=== PATIENT | male | born 1945 | race Caucasian/White ===

== ENCOUNTER 2016-07-22 20:44 | Observation (INO) | payer MEDICARE ==
--- NOTE | ~2016-07-22 | EGD ---
EGD REPORT [facility] [address] [address] NAME: CHRISTIANO CAMACHO : [birth year] STATUS : [facility] PAT#: [id number] AGE: 70 ADM/REG DATE : 07/22/16 MR#: [id number] REPORT SERV DATE: 07/23/16 DICTATED BY: DATE: REPORT STATUS : Draft TRANSCRIBED BY: [facility] DATE: 07/23/16 Endoscopy Center Patient Name: Christiano Camacho Date of : 1945 Attending MD: BEBETO HUBER MD Procedure Date No Time: 07/23/2016 Procedure: Upper GI endoscopy Indications: Foreign body in the esophagus Referring MD: LIBERTAD FULLER Medicines: General Anesthesia Complications: No immediate complications. Procedure: Pre-Anesthesia Assessment: - ASA Grade Assessment: III - A patient with severe systemic disease. After obtaining informed consent, the endoscope was passed under direct vision. Throughout the procedure, the patient's blood pressure, pulse, and oxygen saturations were monitored continuously. The GIF [id number] was introduced through the mouth, and advanced to the second part of duodenum. The upper GI endoscopy was accomplished without difficulty. The patient tolerated the procedure well. Findings: Food was found in the lower third of the esophagus. Removal was accomplished with a Luong net. LA Grade D (one or more mucosal breaks involving at least 75% of esophageal circumference) esophagitis with bleeding was found in the lower third of the esophagus. Biopsies were taken with a cold forceps for histology. Two non-bleeding cratered gastric ulcers were found in the prepyloric region of the stomach and at the pylorus. The largest lesion was 5 mm in largest dimension. Biopsies were taken with a cold forceps for histology. No other significant abnormalities were identified in a careful examination of the stomach. There is no endoscopic evidence of mucosal abnormalities or varices in the entire examined stomach. The examined duodenum was normal. There is no endoscopic evidence of inflammation, mucosal abnormalities or ulceration in the entire examined duodenum. The cardia and gastric fundus were normal on retroflexion. Impression: - Food was found in the esophagus. Removal was successful. - LA Grade D esophagitis. EGD REPORT [address] [address] NAME: CHRISTIANO CAMACHO : [birth year] STATUS : DEP PAT#: [id number] AGE: 70 ADM/REG DATE : 07/22/16 MR#: [id number] REPORT SERV DATE: 07/23/16 DICTATED BY: DATE: REPORT STATUS : Draft TRANSCRIBED BY: [employer] DATE: 07/23/16 - Gastric ulcers with clean base. Biopsied. - Normal examined duodenum. - Biopsies were taken with a cold forceps for histology. Recommendation: - Patient has a contact number available for emergencies. The signs and symptoms of potential delayed complications were discussed with the patient. Return to normal activities tomorrow. Written discharge instructions were provided to the patient. - Soft diet until dilation is done. - Use Prilosec (omeprazole) 20 mg PO daily daily. - Repeat the upper endoscopy in no sooner than 2 weeks for retreatment and dilation. - Await pathology results. - No aspirin, ibuprofen, naproxen, or other non-steroidal anti-inflammatory drugs. - Continue present medications. Procedure Code(s): --- Professional --- 36444, Esophagogastroduodenoscopy, flexible, transoral; with removal of foreign body 64866, Esophagogastroduodenoscopy, flexible, transoral; with biopsy, single or multiple Diagnosis Code(s): --- Professional --- T18.128A, Food in esophagus causing other injury, initial encounter K20.9, Esophagitis, unspecified K25.9, Gastric ulcer, unspecified as acute or chronic, without hemorrhage or perforation T18.108A, Unspecified foreign body in esophagus causing other injury, initial encounter CPT copyright 2013 [employer]. All rights reserved. The codes documented in this report are preliminary and upon pharmacy service associate review may be revised to meet current compliance requirements. BEBETO HUBER MD 07/23/2016 1:48 AM This report has been signed electronically. Number of Addenda: 0 Note Initiated On: 07/23/2016 1:31 AM Scope Withdrawal Time 0 hours 0 minutes 0 seconds EGD REPORT [facility] [address] [address] NAME: CHRISTIANO CAMACHO VELASQUEZ : 43 STATUS : DEP ER PAT#: [id number] AGE: 70 ADM/REG DATE : 07/22/16 MR#: [id number] REPORT SERV DATE: 07/23/16 DICTATED BY: DATE: REPORT STATUS : Draft TRANSCRIBED BY: [employer] DATE: 07/23/16 [address] [address]
--- NOTE | ~2016-07-22 | OP ---
Record Of Operation [facility] [address] [place]. [address] NAME: IVAN CAMACHO : 43 STATUS : [facility] PAT#: [id number] AGE: 71 ADM/REG DATE : 07/22/16 MR#: [id number] REPORT SERV DATE: 10/17/16 DICTATED BY: ORALIA CAMPBELL DATE: 10/15/16 REPORT STATUS : Draft TRANSCRIBED BY: MODL DATE: 10/15/16 DATE OF PROCEDURE: 07/22/2016 REASON FOR EVALUATION: Acute esophageal obstruction. INFORMED CONSENT: The purpose of the procedure was reviewed with Mr. Camacho, to examine the esophagus for suspected foreign body. The risks of the procedure were reviewed including bleeding, perforation, infection, and medication reaction. Medications were administered by Anesthesia, who elected to intubate the patient. After informed consent was obtained, the patient was intubated without incident. The Olympus endoscope was inserted with a large amount of food and a large piece of meat removed from the esophagus. A peptic appearing stricture was noted. There was a Prospect classification grade D ulcerative esophagitis underlying this area. I elected not to dilate. No food contents were noted in the stomach. A clean based antral ulcer was found, as well as a shallow pyloric ulcer. There was no evidence of obstruction. The duodenal mucosa appeared unremarkable without erosion or ulceration. Retroflexed view of the fundus and cardia demonstrated no masses or other abnormalities. Gastric biopsies at the antral ulcer were obtained. Biopsies at the peptic stricture were obtained. The stomach was decompressed and the endoscope withdrawn. The patient tolerated the procedure well. There were no immediate complications. However, later the patient was noted to be in stable atrial fibrillation and I was contacted by Dr. Lopez, who will be having the patient admitted for further evaluation. IMPRESSION: 1. Prospect classification grade D ulcerative esophagitis. 2. Antral and pyloric channel ulcers. RECOMMENDATION: 1. Proton pump inhibitor. I discussed this with his . 2. Followup endoscopy with dilation and assessment no sooner than two weeks. Thank you for asking me to participate in his management. SUZETTE/STEPHAN Oralia Campbell M.D. / [id number] CC: Haris Reid MD Record Of Operation [address] [address] NAME: IVAN CAMACHO : [birth year] STATUS : [facility] PAT#: [id number] AGE: 71 ADM/REG DATE : 07/22/16 MR#: [id number] REPORT SERV DATE: 10/17/16 DICTATED BY: ORALIA CAMPBELL DATE: 10/15/16 REPORT STATUS : Draft TRANSCRIBED BY: MODL DATE: 10/15/16 Harvinder Savage MD
--- NOTE | ~2016-07-22 | DS ---
Discharge Summary [facility] [address] [place]. [address] NAME: IVAN CAMACHO : 43 STATUS : [facility] PAT#: [id number] AGE: 70 ADM/REG DATE : 07/22/16 MR#: [id number] REPORT SERV DATE: 07/24/16 DICTATED BY: HARIS REID DATE: 07/23/16 REPORT STATUS : Draft TRANSCRIBED BY: STEPHAN DATE: 07/23/16 ADMISSION DATE: 07/22/2016 DISCHARGE DATE: 07/23/2016 DIAGNOSES: 1. Food bolus in the esophagus, status post EGD. 2. Grade D esophagitis. 3. Clean based gastric ulcers. 4. New onset atrial fibrillation. 5. Hypertension. 6. Hyperlipidemia. CONSULTS: 1. GI. 2. Cardiology. PROCEDURES: EGD on 07/23/2016 which revealed the food bolus which was retrieved. The EGD also showed grade D esophagitis, as well as a clean based gastric ulcers with no stigmata of recent bleeding. HOSPITAL COURSE: This is a 70-year-old gentleman who was admitted for a food bolus in his esophagus. The patient underwent an EGD and a food bolus was successfully removed. The patient was found to have grade D esophagitis, as well as gastric ulcers. The patient was to be discharged shortly after the EGD, however, he developed atrial fibrillation during the EGD as a new onset. The patient was monitored closely throughout the day and Cardiology was involved in his care. The patient's CHADS2-VASc score was 2 and thus he was initiated on Eliquis prior to discharge. The patient remained in atrial fibrillation, but his ventricular rate was well controlled, and the patient was hemodynamically very stable. The patient is to follow up with GI in two weeks for a repeat EGD and the patient is also to follow up with Cardiology in the next two weeks to consider cardioversion. Of note, the patient had an echocardiogram performed prior to discharge. DISCHARGE MEDICATIONS: 1. The patient was started on Prilosec 20 mg p.o. daily. 2. The patient was also started on Eliquis 5 mg p.o. b.i.d., otherwise no changes. Total of 30 minutes spent in coordinating this patient's discharge today. REAGAN/STEPHAN Haris Reid MD / [id number] Discharge Summary [facility] [place] [address] [place]. [address] NAME: IVAN CAMACHO : 43 STATUS : [facility] PAT#: [id number] AGE: 70 ADM/REG DATE : 07/22/16 MR#: [id number] REPORT SERV DATE: 07/24/16 DICTATED BY: HARIS REID DATE: 07/23/16 REPORT STATUS : Draft TRANSCRIBED BY: STEPHAN DATE: 07/23/16 CC: MD ALINA Beckwith MURALI
--- NOTE | ~2016-07-22 | CN ---
Consultation Report [address] [place]. [address] NAME: IVAN CAMACHO : 43 STATUS : [facility] PAT#: [id number] AGE: 70 ADM/REG DATE : 07/22/16 MR#: [id number] REPORT SERV DATE: 07/23/16 DICTATED BY: DATE: REPORT STATUS : Draft TRANSCRIBED BY: MODL DATE: 07/23/16 CONSULTATION DATE OF CONSULTATION: 07/23/2016 CHIEF COMPLAINT/REASON FOR CONSULT: Asymptomatic atrial fibrillation. HISTORY OF PRESENT ILLNESS: Mr. Camacho is a very pleasant 70-year-old gentleman who presented to the hospital after swallowing a piece of ham and it being stuck in his lower esophagus. He underwent EGD to remove the food bolus. Also nonbleeding, cratered ulcers were identified. The patient states that other than having pain with his fluid bolus, he is asymptomatic. He denies chest pain, shortness of breath, or syncopal or presyncopal episodes. He did not have any idea that he was in atrial fibrillation. PAST MEDICAL HISTORY: 1. Diastolic dysfunction. 2. Hypertension. 3. Hyperlipidemia. 4. Bradycardia. SOCIAL HISTORY: The patient does not smoke, drink, or use extracurricular drugs. He is followed by my colleague, Dr. Fitzgerald. 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 FAMILY HISTORY: Noncontributory. ALLERGIES: NO KNOWN DRUG ALLERGIES. CURRENT OUTPATIENT MEDICATIONS: 1. Doxazosin. 2. Losartan. 3. Metoprolol succinate 25 mg p.o. daily. 4. B12. REVIEW OF SYSTEMS: All systems were reviewed and are negative, except for as dictated in the HPI. PHYSICAL EXAMINATION: VITAL SIGNS: Blood pressure 109/68, pulse is 65 to 80, respirations 16, and oxygen saturations 98%. GENERAL: Mr. Camacho is a well-groomed 70-year-old gentleman. He appears younger than his stated age. HEART: Irregular, rate controlled. Soft S1, S2. We could not appreciate murmurs, rubs, or gallops. Consultation Report [address] [place]. [address] NAME: IVAN CAMACHO : 43 STATUS : [facility]M [facility] PAT#: [id number] AGE: 70 ADM/REG DATE : 07/22/16 MR#: [id number] REPORT SERV DATE: 07/23/16 DICTATED BY: DATE: REPORT STATUS : Draft TRANSCRIBED BY: MODL DATE: 07/23/16 LUNGS: Clear to auscultation in all youngblood. ABDOMEN: Obese and nontender. EXTREMITIES: Warm and well perfused. There is no pitting edema present. MUSCULOSKELETAL: No clubbing or cyanosis of the digits. There is minor osteoarthritic changes noted. NEUROLOGIC: I could not appreciate focal neurologic deficits. TESTS RECORDS/MEDICAL DECISION MAKING: An EKG performed this morning demonstrated rate controlled atrial fibrillation at 77 beats per minute and right bundle branch block. Potassium 3.9, BUN 17, creatinine 1.16. Hemoglobin 14.2, hematocrit 42.9, platelet count is 249. IMPRESSION REPORT AND PLAN: 1. Asymptomatic rate-controlled atrial fibrillation with a CHADSVASC score of 2 for his hypertension and age. 2. Dysphasia with esophageal obstruction due to food bolus, status post EGD and removal. 3. Hypertension. 4. Hyperlipidemia. 5. Nonbleeding gastroesophageal esophageal ulcers. RECOMMENDATIONS: 1. I would recommend since the patient lives quite a distance from the [facility] starting anticoagulation with Eliquis 5 mg twice a day or Xarelto 20 mg once a day for primary stroke prevention. 2. The patient declines transesophageal echocardiogram and cardioversion at this time. He would like to discuss this with his outpatient vehicle mechanic, and I think this is reasonable. 3. I would resume his outpatient antihypertensive. 4. There is no cardiac contraindication to home at this time. 5. He will follow up with Dr. Fitzgerald in approximately two weeks. It has been my pleasure to participate in the care of this patient. [facility]/MAKAYLA Vesna Zamorano M.D. / [id number] CC: MD Harvinder Beckwith MD Consultation Report [address] [place]. [address] NAME: IVAN CAMACHO : 43 STATUS : ADM [facility] PAT#: [id number] AGE: 70 ADM/REG DATE : 07/22/16 MR#: [id number] REPORT SERV DATE: 07/23/16 DICTATED BY: DATE: REPORT STATUS : Draft TRANSCRIBED BY: MODL DATE: 07/23/16 Mary Fitzgerald M.D.
--- NOTE | ~2016-07-22 | HP ---
History And Physical [facility] [id number] [place]. [address] NAME: IVAN CAMACHO : 43 STATUS : [facility]M [facility] PAT#: [id number] AGE: 70 ADM/REG DATE : 07/22/16 MR#: [id number] REPORT SERV DATE: 07/23/16 DICTATED BY: HARIS TORRES DATE: 07/23/16 REPORT STATUS : Draft TRANSCRIBED BY: MODL DATE: 07/23/16 DATE OF ADMISSION: 07/22/2016 CHIEF COMPLAINT: A food bolus in the esophagus. HISTORY OF PRESENT ILLNESS: This is a 70-year-old gentleman with history of hypertension alone who presented to the ER with a food bolus in the esophagus. The patient actually presented to the ER yesterday, and the patient was taken to GI lab for an EGD. The EGD was successful in removing the food bolus, and the patient was also found to have a grade D esophagitis as well as gastric ulcer for which biopsies were taken. Shortly after the EGD, the patient developed an atrial fibrillation, which he does not have any history of and thus, the patient was kept overnight for close observation. By the time of my arrival, the patient was very much eager to leave the hospital. The patient reports that his heart doctor is Dr. Fitzgerald and he believes that he is supposed to be seen by Dr. Fitzgerald, although I did not see any orders to have Dr. Fitzgerald consulted. The patient otherwise is very much asymptomatic. The patient denies any chest pain, palpitations, or shortness of breath. REVIEW OF SYSTEMS: The patient denies any fevers or chills. Also, 14-point review of systems reviewed and negative other than mentioned above. MEDICATIONS: 1. Cozaar 25 mg p.o. q.a.m. 2. Afrin nasal spray, two to three sprays nasally daily p.r.n. 3. Metoprolol 25 mg half a tablet p.o. b.i.d. 4. Pravastatin, unknown dose p.o. q.h.s. ALLERGIES: NKDA. PAST MEDICAL HISTORY: 1. Hypertension. 2. Hyperlipidemia. 3. The patient denies any history of coronary artery disease, congestive heart failure, diabetes, or atrial fibrillation. The patient has seen Dr. Fitzgerald in the past due to a murmur that was appreciated from one of his physical exams, but he was apparently checked out thoroughly and he was cleared by Dr. Fitzgerald for about two years ago. PAST SURGICAL HISTORY: 1. Prostate surgery. 2. Kidney stone extraction. 3. EGD yesterday. FAMILY HISTORY: Negative. History And Physical [address] [place]. [address] NAME: IVNA CAMACHO : 43 STATUS : ADM [facility] PAT#: [id number] AGE: 70 ADM/REG DATE : 07/22/16 MR#: [id number] REPORT SERV DATE: 07/23/16 DICTATED BY: HARIS TORRES DATE: 07/23/16 REPORT STATUS : Draft TRANSCRIBED BY: MODSade DATE: 07/23/16 SOCIAL HISTORY: The patient does not smoke, drink, alcohol, or use any illicit drugs. The patient lives at home with his . PHYSICAL EXAMINATION: VITAL SIGNS: Temperature 96.4, blood pressure 123/71, pulse 65, respiratory rate is 18, saturating 94% on room air. NEURO: The patient is alert and oriented x3 with no focal neurologic deficits. GENERAL: The patient is awake, does not appear to be in acute distress, and he is cooperative. NECK: No JVD. No lymphadenopathy. Normal thyroid. CHEST: No midline sternotomy scar and no tenderness to palpation. LUNGS: Clear to auscultation bilaterally with normal respiratory effort on room air. CARDIOVASCULAR: Irregularly irregular rhythm and rate, but no murmurs, rubs, or gallops, and PMI is nondisplaced. ABDOMEN: Soft, nontender, with active bowel sounds and no organomegaly. EXTREMITIES: No edema. Normal distal pulses. No calf tenderness. SKIN: Clean, dry, warm, and intact. LABORATORY DATA: Sodium is 141, potassium 3.9, chloride 105, BUN 17, creatinine 1.16, glucose 108, calcium 9.0. White blood cell count is 12.4, hemoglobin 14.2, platelets 247. DIAGNOSTIC DATA: EKG that was performed yesterday at 2:00 a.m. reveals atrial fibrillation with right bundle-branch block. No acute ischemic changes. ASSESSMENT: This is a 70-year-old gentleman with a history of hypertension, hyperlipidemia who presented to the ER for a food bolus in esophagus, who subsequently developed atrial fibrillation. 1. New onset atrial fibrillation with CHADS2 VASC score of 2. 2. Food bolus in the esophagus, which was removed via esophagogastroduodenoscopy last night. 3. Grade D esophagitis with gastric ulcer. 4. Hypertension. 5. Hyperlipidemia. PLAN: The plan is to get Dr. Fitzgerald in consult. I will in the meantime check serial troponins along with TSH. I will also check an echocardiogram. The patient's rate is well controlled currently and does not need any further intervention at this point in time. With patient's CHADS2 VASC score, the patient should be anticoagulated, however, patient was not interested in the idea at this point in time. As far as the grade D esophagitis and gastric ulcer goes, we will start him on a PPI and he is to have a repeat EGD in the next couple of weeks. For the rest of stable past medical conditions including hypertension, hyperlipidemia, I will continue his home medications. Standard DVT prophylaxis. The patient is full code at this time. [facility] [place] [place] History And Physical [address] [address] NAME: IVAN CAMACHO : 43 STATUS : ADM [facility] PAT#: [id number] AGE: 70 ADM/REG DATE : 07/22/16 MR#: [id number] REPORT SERV DATE: 07/23/16 DICTATED BY: HARIS TORRES DATE: 07/23/16 REPORT STATUS : Draft TRANSCRIBED BY: STEPHAN DATE: 07/23/16 Haris Torres MD / [id number] CC: MD Harvinder Beckwith MD C. Samuel Ledford, M.D.
--- NOTE | ~2016-07-22 | EGD ---
EGD REPORT [facility] [address] [address] NAME: IVAN CAMACHO : 43 STATUS : ADM [facility] PAT#: [id number] AGE: 70 ADM/REG DATE : 07/22/16 MR#: [id number] REPORT SERV DATE: 07/23/16 DICTATED BY: DATE: REPORT STATUS : Draft TRANSCRIBED BY: [employer] DATE: 07/23/16 THIS EXAM WAS SENT IN ERROR
[2016-07-23] MEDS ORDERED: COZ25 PO (00:20)
[2016-07-23] MEDS ORDERED: PRAVASTATIN PO (00:21)
[2016-07-23] MEDS ORDERED: LOP25 PO (00:21)
[2016-07-23] MEDS ORDERED: AFRIN15 NAS (00:22)
[2016-07-23 00:34] LABS: BASOPHILS 0.1 %; BASOPHILS ABSOLUTE 0.01 10/3/uL (0.0-0.16); EOSINOPHILS 0.2 %; EOSINOPHILS ABSOLUTE 0.02 10/3/uL (0.0-0.53); HEMATOCRIT 42.9 % (40.0-51.0); HEMOGLOBIN 14.2 g/dL (13.6-17.8); IMMATURE GRANULOCYTES 0.3 %; IMMATURE GRANULOCYTES ABSOLUTE 0.04 10/3/uL (0.0-0.11); LYMPHOCYTES 14.2 %; LYMPHOCYTES ABSOLUTE 1.76 10/3/uL (0.67-4.30); MEAN CORPUS HGB CONC 33.1 g/dL (32.0-36.0); MEAN CORPUSCULAR HEMOGLOB 32.1 pg (26.0-34.0); MEAN CORPUSCULAR VOLUME 97.1 fL (80-100); MEAN PLATELET VOLUME 10.9 fL (9.2-13.0); MONOCYTES ABSOLUTE 1.24 10/3/uL (0.21-1.20); NEUTROPHILS 75.2 %; PLATELET COUNT 247 10/3/uL (150-400); RBC DISTRIBUTION WIDTH 12.9 % (12.0-16.0); RED CELL COUNT 4.42 10/6/uL (4.7-6.1); WHITE BLOOD CELLS 12.4 10/3/uL (4.5-10.5)
[2016-07-23 00:35] LABS: ER CBC TAT 0 Hrs 07 MinsNP; MANUAL DIFF NO %
[2016-07-23 00:47] LABS: BUN (BLOOD UREA NITROGEN) 17 MG/DL (6-23); CHLORIDE, SERUM 105 MMOL/L (96-112); CO2 (CARBON DIOXIDE) 24 MMOL/L (24-34); CREATININE 1.16 MG/DL (0.70-1.30); GFR AFRICAN AMERICAN 73 ML/MIN (>=60); GFR NON AFRICAN AMERICAN 63 ML/MIN (>=60); GLUCOSE, SERUM 108 MG/DL (60-99); POTASSIUM, SERUM 3.9 MMOL/L (3.5-5.3); SODIUM, SERUM 141 MMOL/L (135-148)
[2016-07-23 10:27] LABS: TROPONIN I <0.02 NG/ML (<0.05)
[2016-07-23] MEDS ORDERED: PRILO PO (11:41)
[2016-07-23] MEDS ORDERED: ELIQUIS 5 MG TAB5 MG PO (11:42)
== END 2016-07-23 17:34 | disposition home or self-care (01) ==
LOC: GI 20:44 → SDC/OF 21:00 → 7NO 07-23 03:05
PROVIDERS: Internal Medicine; Nurse Practitioner Acute Care
PROC: 0DC58ZZ Extirpation of Matter from Esophagus, Via Natural or Artificial Opening Endoscopic (ICD-10-PCS; principal; 2016-07-22)
PROC: 0DB58ZX Excision of Esophagus, Via Natural or Artificial Opening Endoscopic, Diagnostic (ICD-10-PCS; 2016-07-22)
PROC: 0DB68ZX Excision of Stomach, Via Natural or Artificial Opening Endoscopic, Diagnostic (ICD-10-PCS; 2016-07-22)
DX: T18.128A Food in esophagus causing other injury, initial encounter (principal); K22.10 Ulcer of esophagus without bleeding; I48.91 Unspecified atrial fibrillation; I10 Essential (primary) hypertension; E78.00 Pure hypercholesterolemia, unspecified; E78.5 Hyperlipidemia, unspecified; Z79.899 Other long term (current) drug therapy; Z98.890 Other specified postprocedural states; Z87.442 Personal history of urinary calculi
CPT/HCPCS: 80048; 83036; 84443; 84484; 85025; 88305; 93005; 93306; 99285; A9270-GY; G0378; J0330